=== PATIENT | female | born 1965 | race Two or more races ===

== ENCOUNTER 2025-02-25 12:12 | Day surgery (SDC) | payer BC, SELFPAY ==
[2025-02-25 13:41] VITALS: BP 121/74; PULSE 80; RESP 19; TEMP 36.2; O2SAT 95; BMI 28.3
[2025-02-25] MEDS: LACTATED RINGERS 1000ML 1,000 ML 50 ML IV (13:50)
--- NOTE | 2025-02-25 13:58 | EXP.HP ---
History of Present Illness *Admission Date: 02/25/25 *History of present illness: Mrs. Borden is a 59-year-old female who is here for diagnostic EGD. The patient does have a history of GERD and dyspepsia. She is presently having some choking/strangling with liquids and solids. She also has dyspepsia with epigastric abdominal discomfort, bloating, belching, heartburn and reflux. The examination is deemed medically necessary for diagnostic EGD. The patient has been seen, interviewed and examined prior to the procedure by both myself and the anesthesia provider. [facility] Disclaimer: The information contained in this section may have been updated after the patient was seen, as this information can be updated by other users. Medical History (Updated 02/25/25 @ 14:40 by Connor Gary II, MD) High cholesterol Anxiety GERD (gastroesophageal reflux disease) Hypothyroid Family History (Updated 02/25/25 @ 13:28 by Jennifer Rojas RN) Mother Colon cancer Grandmother Stomach cancer Social History Smoking Status: Unknown if ever smoked alcohol intake: former current occupational status: employed Travel in the last 8 weeks?: Inside the [place] Review of Systems Review of Systems Review of systems (narrative): Negative *Cardiovascular Comments: Negative *Gastrointestinal Comments: Negative *Genitourinary Comments: Negative *Musculoskeletal Comments: Negative *Neurologic Comments: Negative Meds Home Medications and Allergies Home Medications ?Medication ?Instructions ?Recorded ?Confirmed ?Type clonazepam 0.5 mg tablet 0.5 mg PO NEEDED PRN Anxiety 02/25/25 02/25/25 History fluoxetine 20 mg capsule 20 mg PO NEEDED PRN ANIETY 02/25/25 02/25/25 History levothyroxine 75 mcg tablet 75 mcg PO DAILY 02/25/25 02/25/25 History omeprazole 40 mg capsule,delayed 40 mg PO DAILY 02/25/25 02/25/25 History release rosuvastatin 5 mg tablet 5 mg PO DAILY 02/25/25 02/25/25 History New Prescriptions to Start Prescriptions: Allergies Allergy/AdvReac Type Severity Reaction Status Date / Time NSAIDS (Non-Steroidal Allergy Difficulty Verified 02/25/25 13:29 Anti-Inflamma Swallowing Sulfa (Sulfonamide Allergy Difficulty Verified 02/25/25 13:29 Antibiotics) Swallowing Exam Data for Last 24 hours Vital signs and Labs for Last 24 Hours: Temp Pulse Resp BP Pulse Ox O2 Del Method 97.2 F L 80 19 121/74 95 Room Air 02/25/25 13:41 02/25/25 13:41 02/25/25 13:41 02/25/25 13:41 02/25/25 13:41 02/25/25 13:41 I & O for Last 24 hours: Intake & Output 02/22/25 02/23/25 02/24/25 02/25/25 23:59 23:59 23:59 23:59 Weight 165 lb *Routine HEENT Exam Head: Present normocephalic Eye: Present EOMI and PERRL ENT: Present mucous membranes moist *Routine Neck Exam Neck: Present supple *Routine Respiratory Exam Respiratory: Present CTA bilaterally *Routine Cardiovascular Exam Cardiovascular: Present RRR *Routine Abdominal Exam Abdominal: Present soft and normoactive bowel sounds; Absent tenderness *Routine Rectal Exam Rectal:: deferred *Routine Genitalia Exam Genitalia:: deferred *Routine Extremities Exam Extremities: Absent cyanosis, clubbing or edema *Routine Skin Exam Skin: Present warm; Absent rash *Routine Neurological Exam Neurological: Present alert and oriented X3 Assessment and Plan *Assessment and plan (1) GERD (gastroesophageal reflux disease): Status: Acute Category: Medical Code(s): K21.9 - Gastro-esophageal reflux disease without esophagitis (2) History of esophageal stricture: Status: Acute Category: Medical Code(s): Z87.19 - Personal history of other diseases of the digestive system (3) Dyspepsia: Status: Acute Category: Medical Code(s): R10.13 - Epigastric pain (4) Nausea: Status: Acute Category: Medical Code(s): R11.0 - Nausea (5) Choking due to food (regurgitated): Status: Acute Category: Medical Code(s): T17.320A - Food in larynx causing asphyxiation, initial encounter; [id number] - Food entering into or through a natural orifice, initial encounter (6) Regurgitation of food: Status: Acute Category: Medical Code(s): R11.10 - Vomiting, unspecified (7) Belching: Status: Acute Category: Medical Code(s): R14.2 - Eructation (8) Bloating: Status: Acute Category: Medical Code(s): R14.0 - Abdominal distension (gaseous) (9) Epigastric discomfort: Status: Acute Category: Medical Code(s): R10.13 - Epigastric pain Plan A/P: 1. Choking with food regurgitation, heartburn, reflux, nausea, bloating, belching, epigastric discomfort, dyspepsia is the preprocedural diagnosis. The patient will be anesthetized/sedated using MAC sedation. The patient has been seen and examined. Cardiac and lung assessment prior to the examination is stable. Proceed with planned diagnostic EGD.
--- NOTE | 2025-02-25 14:40 | HMH.PROCNOTE ---
[facility] Procedure Note Date: 02/25/25 Time: 14:49 Procedure Note:: Upper Endoscopy Procedure Report: Esophagogastroduodenoscopy with cold biopsies and TTS balloon dilation Endoscopost: Connor Gary II, MD Referring Physician: Rossana Alberts MD Date of Procedure: February 25, 2025 Equipment: Olympus GIF-1100 standard upper endoscope Sedation: MAC sedation Indications: Mrs. Borden is a 59-year-old female who is here for diagnostic upper endoscopy secondary to choking and food regurgitation. The patient does have a long history of functional dyspepsia and GERD. The patient does report epigastric abdominal discomfort, bloating, belching, nausea and early satiety. She does have heartburn and reflux. She reports some globus sensation. She is on omeprazole. Her last EGD with me was in July 2019. She did have cricopharyngeal spasm, nonerosive GERD and moderate esophageal dysmotility with small hiatal hernia. She had bile reflux with some linear reactive gastropathy. Procedure: Prior to the procedure, a history and physical exam was performed, and patient's medications and allergies were reviewed. The risks, benefits and alternatives of the sedation and procedure were discussed with the patient. All questions were answered and informed consent was obtained. The patient was brought to the procedure room. Patient identification and proposed procedure were verified by the physician and the nurse. The patient was placed in a left lateral decubitus position and the scope was passed under direct vision. Throughout the procedure, the patient's blood pressure, pulse, and oxygen saturations were monitored continuously. The upper GI endoscopy was accomplished without difficulty. The patient tolerated the procedure well. Findings: The scope was passed directly into the upper esophagus and advanced to the fourth portion of the duodenum. A cold biopsy was taken from the second portion of the duodenum for the disaccharidase assay. The post bulbar duodenum, ampulla and duodenal bulb were normal with normal mucosa and conniventes. The scope was withdrawn through a normal duodenal bulb and pylorus into the stomach. There was very mild linear antral gastropathy. The body and fundus of the stomach were normal. Cold biopsies were taken from the antrum. Upon retroflexion there was a very small sliding 1 to 2 cm hiatal hernia. The scope was then withdrawn into the esophagus. There was no evidence of reflux esophagitis or Curry's. There were strong tertiary contractions and evidence of moderate esophageal dysmotility. The entire esophagus was dilated to 60 Croatian/20 mm with a TTS hydrostatic balloon. There was moderate resistance at the cricopharyngeus. The remainder of the esophageal mucosa was normal. Impression: 1. Cricopharyngeal spasm 2. Nonerosive GERD with moderate esophageal dysmotility and very small sliding hiatal hernia 3. Mild linear reactive gastropathy of antrum Plan: I will follow-up the biopsies and disaccharidase assay. The patient does have functional dyspepsia and functional GERD. We will discuss additional treatment options.
[2025-02-25 14:54] VITALS: BP 112/85; PULSE 76; RESP 17; TEMP 36.1; O2SAT 96
[2025-02-25 15:04] VITALS: BP 123/70; PULSE 63; RESP 17; O2SAT 96
[2025-02-25 15:14] VITALS: BP 116/78; PULSE 60; RESP 18; O2SAT 98
[2025-02-25 15:34] VITALS: BP 121/75; PULSE 60; RESP 17; O2SAT 98
--- NOTE | 2025-02-25 15:34 | EXP.ANES.CKL ---
[facility] Disclaimer: The information contained in this section may have been updated after the patient was seen, as this information can be updated by other users. Medical History (Updated 02/25/25 @ 14:40 by Connor Gary II, MD) High cholesterol Anxiety GERD (gastroesophageal reflux disease) Hypothyroid Family History (Updated 02/25/25 @ 13:28 by Jennifer Rojas RN) Mother Colon cancer Grandmother Stomach cancer Social History (Updated 02/25/25 @ 14:40 by Connor Gary II, MD) Smoking Status: Unknown if ever smoked alcohol intake: former substance use type: denies use current occupational status: employed Travel in the last 8 weeks?: [place] the [place] [facility] Anesthesia Checklist Patient Identification Patient Identification: Arm Band and Family Structural Data Admitted From: Home Planned Operative Procedure/s: EGD. Consent for Planned Operative Procedure(s) Verified: Yes Verified Documents: Surgical Consent and History and Physical NPO Status Verified Time NPO: 00:00 Additional verifications Patient : No Anesthesia Reactions: No Hx Blood Transfusions: No Blood Transfusion Reaction: No Cephalosporin Allergy: No Airway Assessment Mallampati Score:: Class I C-Spine Mobility Assessed: Yes TMJ Mobility Assessed: Yes Dentition: Good Dentition Neurological Assessment Level of Consciousness: Awake, Alert, Appropriate and Follows Commands Hx Seizures: No Numbness or tingling in extremities: No Anesthesia Plan Anesthesia Risk discussed: Yes ASA Class: II Anesthesia Type: MAC Preoperative Comments Pre-Operative Comments: Difficult swallowing.
[2025-03-02 14:11] LABS: Interpretation Notes (.); Lactase 35.82 (>/= 14.0); Maltase 215.97 (>/= 110.0); Palatinase 12.11 (>/= 8.5); Reference Notes (.); Sucrase 61.33 (>/= 25.0)
== END 2025-02-25 15:50 | disposition home or self-care (01) ==
PROVIDERS: PCP Family Medicine; Visit Provider Internal Medicine Gastroenterology
PROC: 0DJ08ZZ Inspection of Upper Intestinal Tract, Via Natural or Artificial Opening Endoscopic (ICD-10-PCS; CPT 43239; principal; 2025-02-25 14:00)
DX: K21.9 Gastro-esophageal reflux disease without esophagitis (principal); K31.9 Disease of stomach and duodenum, unspecified; E03.9 Hypothyroidism, unspecified; Z88.2 Allergy status to sulfonamides; Z88.6 Allergy status to analgesic agent; Z80.0 Family history of malignant neoplasm of digestive organs; Z79.890 Hormone replacement therapy; Z79.899 Other long term (current) drug therapy
CPT/HCPCS: 43239; 43249; 82657; C1726; J2003; J2704; J7120